=== PATIENT | female | born 1995 | race Caucasian/White ===

== ENCOUNTER 2021-03-28 16:08 | Outpatient (REF) | payer MEDICAID, OTHER, SELFPAY ==
[2021-03-28 18:22] LABS: Alanine Aminotransferase 17 U/L (0-31); Albumin Level 4.7 g/dL (3.5-5.0); Alkaline Phosphatase 123 U/L (39-117); Anion Gap 15 (12-20); Aspartate Amino Transferase 18 U/L (5-31); Bilirubin Total 0.5 mg/dL (0.0-1.0); Blood Urea Nitrogen 10 mg/dL (9-16); Calcium 9.7 mg/dL (8.4-10.2); Carbon Dioxide 26 mmol/L (22-29); Chloride 106 mmol/L (96-108); Estimated Glomerular Filt Rate > 60; Glucose Random 78 mg/dL (60-115); Potassium 4.5 mmol/L (3.3-5.1); Sodium 142 mmol/L (135-145); Total Protein 7.7 g/dL (6.5-8.0)
[2021-03-29 15:51] LABS: Calcium (PTHI) 9.6 mg/dL (8.6-10.2); PTHI 28 pg/mL (14-64)
[2021-03-29 18:52] LABS: Calcium, 24 Hr Urine 231 mg/24 h; Calcium/Creatinine Ratio 165 mg/g creat (30-275)
== END 2021-03-28 16:09 | disposition home or self-care (01) ==
LOC: HO.LAB 16:08
PROVIDERS: PCP Family Medicine; Visit Provider General Practice
DX: G35 Multiple sclerosis (principal)
CPT/HCPCS: 36415; 80053; 82340; 83970

== ENCOUNTER 2021-09-24 12:43 | Outpatient (REF) | payer MEDICAID, OTHER, SELFPAY ==
[2021-09-24 13:55] LABS: Alanine Aminotransferase 17 U/L (0-31); Albumin Level 4.5 g/dL (3.5-5.0); Alkaline Phosphatase 100 U/L (39-117); Anion Gap 13 (12-20); Aspartate Amino Transferase 17 U/L (5-31); Bilirubin Total 0.8 mg/dL (0.0-1.0); Blood Urea Nitrogen 13 mg/dL (9-16); Calcium 10.2 mg/dL (8.4-10.2); Carbon Dioxide 23 mmol/L (22-29); Chloride 107 mmol/L (96-108); Estimated Glomerular Filt Rate > 60; Glucose Random 101 mg/dL (60-115); Potassium 4.3 mmol/L (3.3-5.1); Sodium 139 mmol/L (135-145); Total Protein 7.2 g/dL (6.5-8.0)
[2021-09-25 14:11] LABS: Calcium (PTHI) 10.2 mg/dL (8.6-10.2); PTHI 12 pg/mL (16-77)
== END 2021-09-24 12:44 | disposition home or self-care (01) ==
LOC: HO.LAB 12:43
PROVIDERS: Visit Provider General Practice
DX: Z00.00 Encounter for general adult medical examination without abnormal findings (principal); N94.3 Premenstrual tension syndrome; R53.83 Other fatigue
CPT/HCPCS: 36415; 80053; 83970